=== PATIENT | female | born 1960 | race Caucasian/White ===

== ENCOUNTER 2019-01-06 14:46 | Emergency (ER) | payer MEDICARE, MEDICAID ==
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
[2019-01-06 15:02] VITALS: BP 129/77
[2019-01-06] MEDS ORDERED: Diphtheria,Pertussis(Acell),Tetanus Vaccine 0.5 ML Syringe IM ONE (15:02)
--- NOTE | 2019-01-06 15:08 | CR ---
EXAMINATION: Left hand HISTORY: Pain COMPARISON: None TECHNIQUE: 3 views FINDINGS: There is a mildly angulated nondisplaced fracture through the proximal metaphysis of the proximal fifth phalanx. 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 Bone mineralization is normal to mildly osteopenic. The remaining osseous structures appear intact. Otherwise degenerative changes noted within various interphalangeal joints as well. IMPRESSION: 1. Mildly angulated nondisplaced proximal fifth phalanx fracture.
[2019-01-06] MEDS ORDERED: Acetaminophen/HYDROcodone 325-5 MG Tab PO ONE (15:16)
== END 2019-01-06 17:00 | disposition home or self-care (01) ==
LOC: MW.ED 14:46
DX: S62.617A Displaced fracture of proximal phalanx of left little finger, initial encounter for closed fracture (principal); Z23 Encounter for immunization; V29.9XXA Motorcycle rider (driver) (passenger) injured in unspecified traffic accident, initial encounter
CPT/HCPCS: 73130; 90471; 90715; 99283; A9270

== ENCOUNTER 2023-05-16 13:20 | Emergency (ER) | payer MEDICARE, MEDICAID ==
[2023-05-16] MEDS ORDERED: Sodium Chloride 0.9% 2.5 ML Syringe FLUSH PRN (14:57)
[2023-05-16] MEDS ORDERED: Ketorolac 30 MG/ML SDV IVPUSH STA (14:57)
[2023-05-16] MEDS ORDERED: Sodium Chloride 0.9% 1,000 ML IV STA (14:57)
[2023-05-16] MEDS ORDERED: Ondansetron 4 MG/2 ML SDV IVPUSH STA (14:57)
[2023-05-16] MEDS ORDERED: Sodium Chloride 0.9% 10 ML Syringe FLUSH PRN (14:57)
[2023-05-16 15:20] LABS: CORONAVIRUS COVID-19 NAA NEGATIVE (NEGATIVE); INFLUENZA A NAA NEGATIVE (NEGATIVE); INFLUENZA B NAA NEGATIVE (NEGATIVE)
[2023-05-16 15:37] LABS: BASOPHILS PERCENT AUTO 0.3 % (0.0-1.5); EOSINOPHILS ABSOLUTE AUTO 0.1 K/uL (0.0-0.7); EOSINOPHILS PERCENT AUTO 0.7 % (0.0-7.0); HEMATOCRIT 43.5 % (36.0-46.0); HEMOGLOBIN 14.8 g/dL (12.0-16.0); LYMPHOCYTES ABSOLUTE AUTO 1.1 K/uL (0.6-2.4); LYMPHOCYTES PERCENT AUTO 10.4 % (16.0-40.0); MEAN CORPUSCULAR HEMOGLOBIN 29.5 pg (27.0-32.0); MEAN CORPUSCULAR VOLUME 86.8 fL (80.0-98.0); MONOCYTES ABSOLUTE AUTO 0.7 K/uL (0.0-0.8); MONOCYTES PERCENT AUTO 7.2 % (0.0-15.0); NEUTROPHILS ABSOLUTE AUTO 8.3 K/uL (1.4-5.7); NEUTROPHILS PERCENT AUTO 81.4 % (48.0-80.0); NRBC ABSOLUTE 0 K/uL; PLATELET COUNT,PLT 286 K/uL (150-400); RED BLOOD CELL COUNT 5.01 M/uL (4.30-5.90)
[2023-05-16 16:00] LABS: A/G RATIO 0.8 (0.9-1.6); ALBUMIN 3.7 g/dL (3.4-5.0); BILIRUBIN TOTAL 0.9 mg/dL (0.2-1.0); CALCIUM 9.3 mg/dL (8.5-10.1); CARBON DIOXIDE,CO2 24.9 mmol/L (21.0-32.0); CREATININE 0.8 mg/dL (0.6-1.0); EST CRCL DRUG DOSING (CG) 62.96 mL/min; POTASSIUM,K 4.2 mmol/L (3.5-5.1); PROTEIN TOTAL,TP 8.5 g/dL (6.4-8.2)
[2023-05-16 16:11] LABS: APPEARANCE,URINE CLEAR; BILIRUBIN,URINE NEGATIVE (NEGATIVE); COLOR,URINE YELLOW; GLUCOSE,URINE NEGATIVE (NEGATIVE); KETONES,URINE NEGATIVE (NEGATIVE); LEUKOCYTE ESTERASE,URINE NEGATIVE (NEGATIVE); NITRITE,URINE NEGATIVE (NEGATIVE); OCCULT BLOOD,URINE MODERATE (NEGATIVE); PROTEIN,URINE NEGATIVE (NEGATIVE); UROBILINOGEN,URINE 0.2 EU/dL (<2.0)
[2023-05-16 16:41] LABS: BACTERIA,URINE NOT SEEN (NEGATIVE); EPITHELIAL CELLS,URINE RARE (NONE-FEW); WBC,URINE NONE SEEN (0-5/HPF)
[2023-05-16 17:41] VITALS: BP 159/91; PULSE 103
== END 2023-05-16 17:08 | disposition home or self-care (01) ==
LOC: MW.ED 13:20
DX: M79.10 Myalgia, unspecified site (principal); Z20.822 Contact with and (suspected) exposure to COVID-19
CPT/HCPCS: 0240U; 36415; 71046; 80053; 81001; 83690; 83735; 85025; 86308; 96361; 96374; 96375; 99283; J1885; J2405; J3490; J7030

== ENCOUNTER 2025-02-20 11:13 | Emergency (ER) | payer MEDICARE, MEDICAID ==
[2025-02-20 11:51] VITALS: BP 166/89; PULSE 78
== END 2025-02-20 11:45 | disposition left against medical advice (07) ==
LOC: MW.ED 11:13
DX: M79.605 Pain in left leg (principal)
CPT/HCPCS: 99282; 99283